=== PATIENT | male | born 1980 | race Caucasian/White ===

== ENCOUNTER 2021-11-29 20:33 | Emergency (ER) | payer OTHER, SELFPAY ==
[2021-11-29 20:34] VITALS: BP 176/98; PULSE 127; RESP 20; TEMP 36.8; O2SAT 97; BMI 23.2
[2021-11-29 21:37] LABS: Absolute Lymphocyte Count 1.94 X10^3/uL (0.83-4.51); Absolute Neutrophil Count 3.8 X10^3/uL (2.0-7.7); Basophil# 0.01 X10^3/uL; Basophil% 0.2 % (0-1); Eosinophil# 0.11 X10^3/uL; Eosinophils% 1.8 % (0-5); Hemoglobin 16.4 g/dL (13.0-16.5); Lymphocyte # 1.94 X10^3/ul (0.83-4.51); Mean Corp Hgb Conc 34.2 g/dL (32-36); Mean Corpuscular Hgb 31.4 pg (27.0-32.0); Mean Platelet Vol. 9.2 fl (6.2-12.0); Monocyte# 0.39 X10^3/uL; Monocyte% 6.2 % (0-10); NRBC Flagged by Analyzer 0 % (0-5); Neutrophil # 3.77 X10^3/uL (2.7-7.7); Neutrophil % 60.3 % (47-70); Platelet Count 240 K/mm3 (150-450); RBC Distribution Width CV 13.5 % (11.6-14.6); Red Blood Count 5.22 M/mm3 (4.6-6.2); White Blood Count 6.3 K/mm3 (4.4-11.0)
[2021-11-29 21:59] LABS: Amphetamine Urine VISTA NEGATIVE (<1000 ng/mL); Barbiturate Urine VISTA NEGATIVE (< 200 ng/mL); Benzodiazepine Urine VISTA NEGATIVE (< 200 ng/mL); Cocaine Urine VISTA NEGATIVE (< 300 ng/mL); Ecstacy Urine VISTA NEGATIVE (< 500 ng/mL); Methadone Urine VISTA NEGATIVE (< 300 ng/mL); PCP Urine VISTA NEGATIVE (< 25 ng/mL); THC Urine VISTA NEGATIVE (< 50 ng/mL); Vista UDS pH Range 5
[2021-11-29 22:00] VITALS: RESP 16
[2021-11-29 22:01] LABS: Anion Gap 13 (5-15); BUN 11 mg/dL (7-18); BUN/Creat Ratio 12.4 RATIO (10-20); Calcium,Total 9.4 mg/dL (8.5-10.1); Chloride 109 mmol/L (98-107); Creatinine, Serum 0.89 mg/dL (0.70-1.30); EST Glomerular Filtration Rate 100 mL/min (>60); Est Glom Filt Rate - Afr Amer 121 mL/min (>60); Estimated Creatinine Clearance 102.12 ml/min; Glucose 137 mg/dL (74-106); Potassium 2.7 mmol/L (3.5-5.1); Sodium Level 144 mmol/L (136-145)
--- NOTE | 2021-11-29 22:09 | EX.ED.VIS.PS ---
HPI HPI - Psych History of Present Illness Chief Complaint: Suicidal Informant: patient Onset/Context/Timing Onset: Today Conflict: Family Worsened by: Situational factors and Alcohol intoxication Relieved by: Nothing Associated Symptoms Associated Symptoms - Psych: Positive for Agitated and Angry Narrative Narrative: Patient presents with reported suicidal ideations. Patient states he went to work today and when he came home he had some drinks of alcohol tonight. Patient states he went to bed. Patient states he was then awoken by the police and was handcuffed. Patient states he became agitated. Patient states he does not know why he is here. Patient denies any suicidal ideations. Patient denies any other symptoms. Police filled out a pink slip. Please report on a pink slip that the patient sent a text message to his saying goodmelissae. 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 The tried to text him back and asked him if he was going to harm himself. Patient did not respond to this text message. PFSH PFSH Medical History no medical history no medical history Allergy/AdvReac Type Severity Reaction Status Date / Time No Known Allergies Allergy Verified 11/29/21 20:34 Surgical History no surgical history no surgical history Social History Smoking Status: Current every day smoker tobacco type: cigarettes ROS ROS ED Constitutional Constitutional ED: Denies chills or fever(s) Eyes Eyes: Denies blurry vision or change in vision ENT ENT ED: Denies rhinorrhea or sore throat Cardiovascular Cardiovascular: Denies chest pain or palpitations Respiratory/Chest Respiratory/Chest: Denies cough or dyspnea Gastrointestinal Gastrointestinal: Denies nausea or vomiting Genitourinary Genitourinary ED: Denies dysuria or hematuria Musculoskeletal Musculoskeletal: Denies back pain or neck pain Integumentary Denies abscess or rash Neurologic Neurologic: Denies headache(s) or weakness Allergic/Immunologic Allergic/Immunologic ED: Denies mouth swelling or urticaria EXAM Physical Exam Const Vital Signs: 11/29/21 20:34 11/29/21 22:00 Temperature 98.2 F Temperature Source Temporal Pulse Rate 127 H Respiratory Rate 20 H 16 Blood Pressure 176/98 H Blood Pressure Mean 124 Pulse Ox 97 Oxygen Delivery Method Room Air Room Air Positive well nourished and well developed General Appearance ED: well developed HEENT normocephalic and atraumatic Neck supple and no JVD Resp normal respiratory effort and clear to auscultation bilaterally Cardio no murmurs Rate: regular rate Rhythm: regular rhythm GI non-tender and non-distended Auscultation: normoactive bowel sounds Palpation: soft Extremity normal to inspection General Extremety ED: Negative for edema or tenderness General Extremity: Negative for edema Neuro oriented x3, CN's II-XII intact bilaterally and no sensory deficits noted Sensorium / Orientation: alert Motor Exam: strength 5/5 throughout Psych mental status grossly normal Activity / Motor Behavior: avoids eye contact Speech: minimal and soft Mood & Affect: flat affect Skin Rashes: no rashes MDM MDM MDM Narrative Medical decision making narrative: CBC was within normal limits. Basic metabolic profile shows a hypokalemia of 2.7. Patient was given a dose of oral potassium here. Urine tox screen was negative. Serum alcohol level was elevated at 253. Patient will be observed until he is clinically sober. Crisis will be in to evaluate the patient when he is clinically sober. Lab Data Attestation: I reviewed the patient's lab results. Labs: Laboratory Results - last 24 hr 11/29/21 11/29/21 11/29/21 21:00 21:10 21:10 WBC 6.3 RBC 5.22 Hgb 16.4 Hct 48.0 MCV 92.0 MCH 31.4 MCHC 34.2 RDW Std Deviation 46.0 H RDW Coeff of Krupa 13.5 Plt Count 240 MPV 9.2 Immature Gran % (Auto) 0.500 Neut % (Auto) 60.3 Lymph % (Auto) 31.0 [place] % (Auto) 6.2 Eos % (Auto) 1.8 Baso % (Auto) 0.2 Absolute Neuts (auto) 3.8 Absolute Lymphs (auto) 1.94 Nucleated RBC % 0 Sodium 144 Potassium 2.7 L* Chloride 109 H Carbon Dioxide 22.0 Anion Gap 13 BUN 11 Creatinine 0.89 Estim Creat Clear Calc 102.12 Est GFR (MDRD) Af Amer 121 Est GFR (MDRD) Non-Af 100 BUN/Creatinine Ratio 12.4 Glucose 137 H Calcium 9.4 Urine Opiates Screen NEGATIVE Urine Methadone Screen NEGATIVE Ur Barbiturates Screen NEGATIVE Ur Phencyclidine Scrn NEGATIVE Ur Amphetamines Screen NEGATIVE MDMA (Ecstasy) Screen NEGATIVE U Benzodiazepines Scrn NEGATIVE Urine Cocaine Screen NEGATIVE U Cannabinoids Screen NEGATIVE Ur Drug Screen Comment Ethyl Alcohol 11/29/21 21:10 WBC RBC Hgb Hct MCV MCH MCHC RDW Std Deviation RDW Coeff of Krupa Plt Count MPV Immature Gran % (Auto) Neut % (Auto) Lymph % (Auto) [place] % (Auto) Eos % (Auto) Baso % (Auto) Absolute Neuts (auto) Absolute Lymphs (auto) Nucleated RBC % Sodium Potassium Chloride Carbon Dioxide Anion Gap BUN Creatinine Estim Creat Clear Calc Est GFR (MDRD) Af Amer Est GFR (MDRD) Non-Af BUN/Creatinine Ratio Glucose Calcium Urine Opiates Screen Urine Methadone Screen Ur Barbiturates Screen Ur Phencyclidine Scrn Ur Amphetamines Screen MDMA (Ecstasy) Screen U Benzodiazepines Scrn Urine Cocaine Screen U Cannabinoids Screen Ur Drug Screen Comment Ethyl Alcohol 253.0 Discharge Plan Triage Chief Complaint: Suicidal ED Provider: Ashish Summers Dx/Rx/DC Orders Clinical Impression: Agitation, Hypokalemia Primary Care Provider: Care Physician,No Primary Referrals: Care Physician,No Primary [Primary Care Provider] -
[2021-11-30 01:00] VITALS: RESP 16
--- NOTE | 2021-11-30 04:53 | NURSING ---
CALLED CRISIS AT [phone]
[2021-11-30 06:00] VITALS: RESP 15
[2021-11-30 07:00] VITALS: PULSE 70; RESP 15; O2SAT 97
== END 2021-11-30 07:22 | disposition home or self-care (01) ==
PROVIDERS: Emergency Medicine; Emergency Provider Emergency Medicine; Visit Provider Emergency Medicine
DX: R45.1 Restlessness and agitation (principal); F10.929 Alcohol use, unspecified with intoxication, unspecified; Y90.8 Blood alcohol level of 240 mg/100 ml or more; E87.6 Hypokalemia; F17.210 Nicotine dependence, cigarettes, uncomplicated
CPT/HCPCS: 36415; 80048; 80307; 82077; 85025; 87811; 99283

== ENCOUNTER 2022-01-31 12:31 | Observation (INO) | payer OTHER, SELFPAY ==
[2022-01-31 12:34] VITALS: BP 159/102; PULSE 107; RESP 16; TEMP 36.6; O2SAT 98; BMI 25.0
--- NOTE | 2022-01-31 12:43 | EKG12_ITS ---
Test Reason : mental health Blood Pressure : / mmHG Vent. Rate : 096 BPM Atrial Rate : 096 BPM P-R Int : 128 ms QRS Dur : 082 ms QT Int : 344 ms P-R-T Axes : 051 014 026 degrees QTc Int : 434 ms Normal sinus rhythm Normal ECG Confirmed by ZULEIMA MONTIEL, DARWIN ([id number]), continuity editor VINOD TILLEY ([id number]) on 02/02/2022 2:14:48 PM Referred By: Kiel Confirmed By:DARWIN DEWEY MD
--- NOTE | 2022-01-31 12:45 | ED.RN ---
Per Dr Dyson no sitter needed. Pt is pink slipped.
--- NOTE | 2022-01-31 12:51 | EDS_ITS ---
HPI <Dr. 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 Patient's been drinking heavily for the past 7 months. Apparently he spoke with his ex- and told him that he wants health. He notes has been drinking [employer] liquor every day and has been drinking heavily the past few days. He cannot quantify how much he has been drinking. He does not have any history of alcohol withdrawal or DTs. Patient is requesting help with alcohol dependency. When EMS/police asked if he was feeling suicidal he said yes. He is having thoughts of wanting to . Of asked he had a plan he said with alcohol and Aleve. He states he has remote history of overdose with alcohol and Aleve. He states he did not take any Aleve or any other medications today. Patient states he does not have any guns or weapons at the home however he does have some paintball/Airsoft guns. He lives home alone. Was here for alcohol intoxication/suicidal ideations about 2 months ago. At that time on reevaluation after he was clinically sober, patient denied any SI and was discharged home with outpatient counseling follow up. Patient does note that he has been having tingling and numbness of his tongue and his calfs for the past 7 months or so since he has been drinking heavily. No other physical complaints at this time. PFSH <Dr. Smita Dyson, DO - Last Filed: 02/01/22 07:09> [facility] Medical History Alcohol abuse Anxiety Depression Smoker Home Medications NK 01/31/22 [History Last Taken Unknown] Allergy/AdvReac Type Severity Reaction Status Date / Time No Known Allergies Allergy Verified 01/31/22 12:40 Family History (Updated 01/31/22 @ 20:[address] Pato Braun MD) Other Alcoholism Surgical History H/O wisdom tooth extraction Social History Smoking Status: Current every day smoker tobacco type: cigarettes ROS <Dr. Smita Dyson, DO - Last Filed: 02/01/22 07:09> ROS ED Constitutional Constitutional ED: Denies chills or fever(s) Eyes Eyes: Denies change in vision ENT ENT ED: Reports other Details: tongue tingling ; Denies sore throat Cardiovascular Cardiovascular: Denies chest pain Respiratory/Chest Respiratory/Chest: Denies cough Gastrointestinal Gastrointestinal: Denies abdominal pain, nausea or vomiting Genitourinary Genitourinary ED: Denies dysuria Musculoskeletal Musculoskeletal: Denies arthralgias or back pain Integumentary Denies rash Neurologic Neurologic: Reports paresthesias; Denies headache(s) or weakness Psychiatric Psychiatric: Reports depression, suicidal ideation and suicidal thoughts; Denies anxiety Hematologic/Lymphatic Hematologic/Lymphatic: Denies easy bleeding or easy bruising EXAM <Dr. Smita Dyson, DO - Last Filed: 02/01/22 07:09> Physical Exam Const Vital Signs: 01/31/22 12:34 01/31/22 17:37 Temperature 98 F 98.4 F Temperature Source Temporal Temporal Pulse Rate 107 H 109 H Respiratory Rate 16 16 Blood Pressure 159/102 H 158/92 H Blood Pressure Mean 121 114 Pulse Ox 98 96 Oxygen Delivery Method Room Air Room Air Positive well nourished and well developed General Appearance ED: well developed and NAD HEENT Reports moist mucous membranes normocephalic and atraumatic Eyes PERRL and EOMs intact bilaterally Neck supple and no JVD Resp normal respiratory effort and clear to auscultation bilaterally Cardio no murmurs Rate: tachycardic Rhythm: regular rhythm GI non-tender, non-distended and no masses Palpation: Negative for guarding Extremity normal to inspection General Extremety ED: Negative for edema or tenderness General Extremity: Negative for edema Neuro no sensory deficits noted Neuro Narrative: Slightly slurred speech consistent with alcohol intoxication. Sensorium / Orientation: alert Motor Exam: muscle tone normal throughout Psych cooperative Appearance: grossly normal and appropriate Attitude: withdrawn Activity / Motor Behavior: avoids eye contact Speech: slurred Mood & Affect: depressed and tearful Thought Process: normal thought process Thought Content: suicidality, No homicidality, No delusion(s) and No hallucination(s) Attention / Concentration: attention grossly intact Memory / Cognition: memory grossly intact Insight: fair Judgement: limited Skin Lesions: no lesions Rashes: no rashes <Dr. Franklin Escobar, DO - Last Filed: 01/31/22 20:34> Physical Exam Const Vital Signs: 01/31/22 12:34 01/31/22 17:37 Temperature 98 F 98.4 F Temperature Source Temporal Temporal Pulse Rate 107 H 109 H Respiratory Rate 16 16 Blood Pressure 159/102 H 158/92 H Blood Pressure Mean 121 114 Pulse Ox 98 96 Oxygen Delivery Method Room Air Room Air MDM <Dr. Smita Dyson, DO - Last Filed: 02/01/22 07:09> MDM MDM Narrative Medical decision making narrative: Patient is evaluated for alcohol intoxication as well as depression. EMS/police were initially called out for alcohol intoxication however patient screened positive for SI. Patient seems to have more passive suicidal ideations as his plan is to drink alcohol. He is cooperative the emergency room. I do think that he would benefit from further psychiatric evaluation and possible evaluation for alcohol detox. We will obtain medical clearance. [place] slip filed by myself. At this time I do not think he needs a sitter as I do not think he is going to harm himself in the room. If he does try to leave or start to become uncooperative we will need to get a sitter at that time. Patient is medically cleared. He will need a lower EtOH level before case management/crisis can see him. Will be signed out to oncoming provider pending final disposition. Lab Data Attestation: I reviewed the patient's lab results. Labs: Laboratory Results - last 24 hr 01/31/22 01/31/22 01/31/22 13:00 13:00 13:00 WBC 5.7 RBC 5.04 Hgb 16.6 H Hct 45.4 MCV 90.1 MCH 32.9 H MCHC 36.6 H RDW Std Deviation 44.6 H RDW Coeff of Krupa 13.4 Plt Count 270 MPV 9.3 Immature Gran % (Auto) 0.200 Neut % (Auto) 61.8 Lymph % (Auto) 28.8 [place] % (Auto) 7.3 Eos % (Auto) 1.6 Baso % (Auto) 0.3 Absolute Neuts (auto) 3.5 Absolute Lymphs (auto) 1.65 Nucleated RBC % 0 Sodium 141 Potassium 3.5 Chloride 106 Carbon Dioxide 23.0 Anion Gap 12 BUN 7 Creatinine 0.77 Estim Creat Clear Calc 109.82 Est GFR (MDRD) Af Amer 143 Est GFR (MDRD) Non-Af 119 BUN/Creatinine Ratio 9.1 L Glucose 96 Calcium 8.9 Total Bilirubin 0.90 AST 37 ALT 39 Alkaline Phosphatase 46 Total Protein 7.7 Albumin 3.9 Globulin 3.8 Albumin/Globulin Ratio 1.0 Salicylates Urine Opiates Screen Urine Methadone Screen Acetaminophen Ur Barbiturates Screen Ur Phencyclidine Scrn Ur Amphetamines Screen MDMA (Ecstasy) Screen U Benzodiazepines Scrn Urine Cocaine Screen U Cannabinoids Screen Ur Drug Screen Comment Ethyl Alcohol 180.0 01/31/22 01/31/22 01/31/22 13:00 14:35 17:17 WBC RBC Hgb Hct MCV MCH MCHC RDW Std Deviation RDW Coeff of Krupa Plt Count MPV Immature Gran % (Auto) Neut % (Auto) Lymph % (Auto) [place] % (Auto) Eos % (Auto) Baso % (Auto) Absolute Neuts (auto) Absolute Lymphs (auto) Nucleated RBC % Sodium Potassium Chloride Carbon Dioxide Anion Gap BUN Creatinine Estim Creat Clear Calc Est GFR (MDRD) Af Amer Est GFR (MDRD) Non-Af BUN/Creatinine Ratio Glucose Calcium Total Bilirubin AST ALT Alkaline Phosphatase Total Protein Albumin Globulin Albumin/Globulin Ratio Salicylates 2.4 L Urine Opiates Screen NEGATIVE Urine Methadone Screen NEGATIVE Acetaminophen < 2.0 L Ur Barbiturates Screen NEGATIVE Ur Phencyclidine Scrn NEGATIVE Ur Amphetamines Screen NEGATIVE MDMA (Ecstasy) Screen NEGATIVE U Benzodiazepines Scrn NEGATIVE Urine Cocaine Screen NEGATIVE U Cannabinoids Screen NEGATIVE Ur Drug Screen Comment Ethyl Alcohol 43.0 Rhythm Strip Rhythm Strip: Sinus Rhythm Rate: 96 Ectopy: None EKG Initial EKG: Attestation: I personally reviewed and interpreted this EKG as follows: Interpretation: Sinus Rhythm Comments: Normal sinus rhythm at a rate of 96 Normal axis Normal intervals Normal ST segments <Dr. Franklin Escobar, DO - Last Filed: 01/31/22 20:34> [facility] MDM Narrative Medical decision making narrative: Patient is evaluated for alcohol intoxication as well as depression. EMS/police were initially called out for alcohol intoxication however patient screened positive for SI. Patient seems to have more passive suicidal ideations as his plan is to drink alcohol. He is cooperative the emergency room. I do think that he would benefit from further psychiatric evaluation and possible evaluation for alcohol detox. We will obtain medical clearance. [place] slip filed by myself. At this time I do not think he needs a sitter as I do not think he is going to harm himself in the room. If he does try to leave or start to become uncooperative we will need to get a sitter at that time. Patient is medically cleared. He will need a lower EtOH level before case management/crisis can see him. Will be signed out to oncoming provider pending final disposition. Dr. Escobar dictating: Patient signed out to me awaiting EtOH level to normalize for reevaluation. Patient's EtOH now 43. He is awake and alert. I had social work speak with him and he is no longer suicidal. He states he just feels that way when he is drinking and states that when he is drinking he does not want to live like this indicating drinking too much. He is stating that he will do outpatient detox however after talking to social work and his he decided to stay here at [facility] for detox. Patient discussed with hospitalist for admission. Impression: 1. Suicidal statements 2. EtOH intoxication 3. Request for EtOH detox Lab Data Labs: Laboratory Results - last 24 hr 01/31/22 01/31/22 01/31/22 13:00 13:00 13:00 WBC 5.7 RBC 5.04 Hgb 16.6 H Hct 45.4 MCV 90.1 MCH 32.9 H MCHC 36.6 H RDW Std Deviation 44.6 H RDW Coeff of Krupa 13.4 Plt Count 270 MPV 9.3 Immature Gran % (Auto) 0.200 Neut % (Auto) 61.8 Lymph % (Auto) 28.8 [place] % (Auto) 7.3 Eos % (Auto) 1.6 Baso % (Auto) 0.3 Absolute Neuts (auto) 3.5 Absolute Lymphs (auto) 1.65 Nucleated RBC % 0 Sodium 141 Potassium 3.5 Chloride 106 Carbon Dioxide 23.0 Anion Gap 12 BUN 7 Creatinine 0.77 Estim Creat Clear Calc 109.82 Est GFR (MDRD) Af Amer 143 Est GFR (MDRD) Non-Af 119 BUN/Creatinine Ratio 9.1 L Glucose 96 Calcium 8.9 Total Bilirubin 0.90 AST 37 ALT 39 Alkaline Phosphatase 46 Total Protein 7.7 Albumin 3.9 Globulin 3.8 Albumin/Globulin Ratio 1.0 Salicylates Urine Opiates Screen Urine Methadone Screen Acetaminophen Ur Barbiturates Screen Ur Phencyclidine Scrn Ur Amphetamines Screen MDMA (Ecstasy) Screen U Benzodiazepines Scrn Urine Cocaine Screen U Cannabinoids Screen Ur Drug Screen Comment Ethyl Alcohol 180.0 01/31/22 01/31/22 01/31/22 13:00 14:35 17:17 WBC RBC Hgb Hct MCV MCH MCHC RDW Std Deviation RDW Coeff of Krupa Plt Count MPV Immature Gran % (Auto) Neut % (Auto) Lymph % (Auto) [place] % (Auto) Eos % (Auto) Baso % (Auto) Absolute Neuts (auto) Absolute Lymphs (auto) Nucleated RBC % Sodium Potassium Chloride Carbon Dioxide Anion Gap BUN Creatinine Estim Creat Clear Calc Est GFR (MDRD) Af Amer Est GFR (MDRD) Non-Af BUN/Creatinine Ratio Glucose Calcium Total Bilirubin AST ALT Alkaline Phosphatase Total Protein Albumin Globulin Albumin/Globulin Ratio Salicylates 2.4 L Urine Opiates Screen NEGATIVE Urine Methadone Screen NEGATIVE Acetaminophen < 2.0 L Ur Barbiturates Screen NEGATIVE Ur Phencyclidine Scrn NEGATIVE Ur Amphetamines Screen NEGATIVE MDMA (Ecstasy) Screen NEGATIVE U Benzodiazepines Scrn NEGATIVE Urine Cocaine Screen NEGATIVE U Cannabinoids Screen NEGATIVE Ur Drug Screen Comment Ethyl Alcohol 43.0 Discharge Plan Dx/Rx/DC Orders Clinical Impression: Alcohol intoxication, Depression, Suicidal ideation Disposition Disposition: Acute Care Hospital [facility]
[2022-01-31 13:15] LABS: Absolute Lymphocyte Count 1.65 X10^3/uL (0.83-4.51); Absolute Neutrophil Count 3.5 X10^3/uL (2.0-7.7); Basophil# 0.02 X10^3/uL; Basophil% 0.3 % (0-1); Eosinophil# 0.09 X10^3/uL; Eosinophils% 1.6 % (0-5); Hematocrit 45.4 % (40-54); Hemoglobin 16.6 g/dL (13.0-16.5); Lymphocyte # 1.65 X10^3/ul (0.83-4.51); Lymphocyte % 28.8 % (19-41); Mean Corp Hgb Conc 36.6 g/dL (32-36); Mean Corpuscular Hgb 32.9 pg (27.0-32.0); Mean Corpuscular Volume 90.1 fL (80-94); Mean Platelet Vol. 9.3 fl (6.2-12.0); Monocyte# 0.42 X10^3/uL; Monocyte% 7.3 % (0-10); NRBC Flagged by Analyzer 0 % (0-5); Neutrophil # 3.54 X10^3/uL (2.7-7.7); Neutrophil % 61.8 % (47-70); Platelet Count 270 K/mm3 (150-450); RBC Distribution Width CV 13.4 % (11.6-14.6); RBC Distribution Width SD 44.6 fl (35.1-43.9); Red Blood Count 5.04 M/mm3 (4.6-6.2); White Blood Count 5.7 K/mm3 (4.4-11.0)
--- NOTE | 2022-01-31 13:23 | CM.ED ---
Social Work Note SW spoke with medtronics technician, pt is intoxicated. Pt will need to be sober before psych evaluation can be completed. SW informed medtronics technician to let this worker know if pt becomes medically sober/cleared. Yesenia Syed SHOES HAND SEWER, SCHEDULING MANAGER
[2022-01-31 13:33] LABS: AST(SGOT) 37 U/L (15-37); Alanine Aminotransfer ALT/SGPT 39 U/L (16-61); Albumin, Serum 3.9 g/dL (3.2-5.0); Alkaline Phosphatase 46 U/L (45-117); Anion Gap 12 (5-15); BUN 7 mg/dL (7-18); BUN/Creat Ratio 9.1 RATIO (10-20); Calcium,Total 8.9 mg/dL (8.5-10.1); Chloride 106 mmol/L (98-107); Creatinine, Serum 0.77 mg/dL (0.70-1.30); EST Glomerular Filtration Rate 119 mL/min (>60); Est Glom Filt Rate - Afr Amer 143 mL/min (>60); Estimated Creatinine Clearance 109.82 ml/min; Globulin 3.8 g/dL (2.2-4.2); Glucose 96 mg/dL (74-106); Potassium 3.5 mmol/L (3.5-5.1); Protein, Total 7.7 g/dL (6.4-8.2); Sodium Level 141 mmol/L (136-145)
[2022-01-31 14:03] LABS: Acetaminophen (Tylenol) Level < 2.0 ug/mL (10.0-30.0); Salicylate 2.4 mg/dL (2.8-20.0)
[2022-01-31 15:02] LABS: Amphetamine Urine VISTA NEGATIVE (<1000 ng/mL); Barbiturate Urine VISTA NEGATIVE (< 200 ng/mL); Benzodiazepine Urine VISTA NEGATIVE (< 200 ng/mL); Cocaine Urine VISTA NEGATIVE (< 300 ng/mL); Ecstacy Urine VISTA NEGATIVE (< 500 ng/mL); Methadone Urine VISTA NEGATIVE (< 300 ng/mL); PCP Urine VISTA NEGATIVE (< 25 ng/mL); THC Urine VISTA NEGATIVE (< 50 ng/mL); Vista UDS pH Range 5
[2022-01-31] MEDS: Folic Acid 1 MG Tablet 2 MG PO (17:34)
[2022-01-31] MEDS: Cyanocobalamin 500 MCG Tablet 1000 MCG PO (17:36)
[2022-01-31 17:37] VITALS: BP 158/92; PULSE 109; RESP 16; TEMP 36.9; O2SAT 96
--- NOTE | 2022-01-31 20:12 | HP.PCM.HOS_ITS ---
HPI - General General Date of Admission: 01/31/22 Date of Service: 01/31/22 Chief Complaint: Desire for detoxification HPI Narrative AZEB REAL, is a 41 M with a significant history of alcoholism and tobacco abuse who is requesting detoxification from alcohol. Of note patient originally presented to emergency department intoxicated. At that time he said he was suicidal and depressed so he was pink slipped. When patient became sober he denied suicidal ideation and was cleared by social work. Upon discussion between drug abuse social worker; patient and patient's ex- patient requested detoxification from alcohol. Reportedly he has been drinking heavily for the past 5 years. He drinks [employer]. On the average he drinks about 8 shots per day. Last time he drank was on the same day of presentation. He reports withdrawal symptoms of hot sweats. [facility] Medical History Alcohol abuse Anxiety Depression Smoker Medical History no medical history no medical history Home Medications NK 01/31/22 [History Last Taken Unknown] Allergy/AdvReac Type Severity Reaction Status Date / Time No Known Allergies Allergy Verified 01/31/22 12:40 Family History (Updated 01/31/22 @ 20:[address] Pato Braun MD) Other Alcoholism Surgical History H/O wisdom tooth extraction Social History Smoking Status: Current every day smoker tobacco type: cigarettes ROS ROS Narrative Pertinent positives and pertinent negatives as noted in HPI. All other systems were reviewed and are negative. Vital Signs Vital Signs Vital Signs: 01/31/22 12:34 01/31/22 17:37 Temperature 98 F 98.4 F Temperature Source Temporal Temporal Pulse Rate 107 H 109 H Respiratory Rate 16 16 Blood Pressure 159/102 H 158/92 H Blood Pressure Mean 121 114 Pulse Ox 98 96 Oxygen Delivery Method Room Air Room Air Weight Weight: 68.039 kg Body Mass Index (BMI) 25.0 Physical Exam Narrative Physical exam: General: Well-nourished, well-developed. Head: Normocephalic, atraumatic, no tenderness Eyes: Vision is grossly intact. EOMI ENT, no trauma, moist mucous membranes, no rhinorrhea Neck: Nontender, full range of motion, no spinal tenderness, deformities, step- off CVS: Regular rate and rhythm. S1-S2 present. No murmur, gallop or rub. Respiratory : clear to auscultation bilaterally, chest wall nontender, no wheezing Abdomen: Soft, nontender, nondistended, normal bowel sounds, no masses : Deferred Back: Nontender, no CVA tenderness, no midline spinal tenderness, deformities, step-offs Extremities: Nontender full range of motion, no trauma Skin: Normal color, no trauma, abrasions Neuro: Alert, oriented, cranial nerves II through XII grossly intact. Psychiatry: Normal mood. Normal affect. Not depressed. Not anxious. Results Lab / Micro Data Result Diagrams: 01/31/22 13:00 01/31/22 13:00 Labs: Laboratory Results - last 24 hr 01/31/22 13:00: WBC 5.7, RBC 5.04, Hgb 16.6 H, Hct 45.4, MCV 90.1, MCH 32.9 H, MCHC 36.6 H, RDW Std Deviation 44.6 H, RDW Coeff of Krupa 13.4, Plt Count 270, MPV 9.3, Immature Gran % (Auto) 0.200, Neut % (Auto) 61.8, Lymph % (Auto) 28.8, [place] % (Auto) 7.3, Eos % (Auto) 1.6, Baso % (Auto) 0.3, Absolute Neuts (auto) 3.5, Absolute Lymphs (auto) 1.65, Nucleated RBC % 0 01/31/22 13:00: Sodium 141, Potassium 3.5, Chloride 106, Carbon Dioxide 23.0, Anion Gap 12, BUN 7, Creatinine 0.77, Estim Creat Clear Calc 109.82, Est GFR (MDRD) Af Amer 143, Est GFR (MDRD) Non-Af 119, BUN/Creatinine Ratio 9.1 L, Glucose 96, Calcium 8.9, Total Bilirubin 0.90, AST 37, ALT 39, Alkaline Phosphatase 46, Total Protein 7.7, Albumin 3.9, Globulin 3.8, Albumin/Globulin Ratio 1.0 01/31/22 13:00: Ethyl Alcohol 180.0 01/31/22 13:00: Salicylates 2.4 L, Acetaminophen < 2.0 L 01/31/22 14:35: Urine Opiates Screen NEGATIVE, Urine Methadone Screen NEGATIVE, Ur Barbiturates Screen NEGATIVE, Ur Phencyclidine Scrn NEGATIVE, Ur Amphetamines Screen NEGATIVE, MDMA (Ecstasy) Screen NEGATIVE, U Benzodiazepines Scrn NEGATIVE, Urine Cocaine Screen NEGATIVE, U Cannabinoids Screen NEGATIVE, Ur Drug Screen Comment 01/31/22 17:17: Ethyl Alcohol 43.0 Rhythm Strip Rhythm Strip: Sinus Rhythm Rate: 96 Ectopy: None Assessment & Plan Assessment/Plan (1) Desire for detoxification: PLAN: Plan Alcohol dependence and desire for detoxification Toxicology was unremarkable except ethanol level of 180 which with time decreased to 43. Patient be started on phenobarbital and other adjunctive medications: Gabapentin as needed; dicyclomine as needed; Vistaril as needed; Imodium as needed; trazodone as needed; Zofran as needed; scheduled thiamine; and schedule folic acid. Monitor CIWA score Tobacco abuse Counseled Declined nicotine patch . DVT prophylaxis Low risk Encourage to ambulate Charges/Coding Visit Charges Inpatient E&M: 58580 Init Hosp L2
[2022-01-31 20:16] VITALS: RESP 17
[2022-01-31 21:17] VITALS: BP 150/84; PULSE 100; RESP 16; TEMP 36.9; O2SAT 97
--- NOTE | 2022-01-31 21:41 | CM.ED ---
Social Work Assessment Social Work Psychiatric Assessment Reason for consult: Mental Health/Suicidal Ideations Informant(s): Pt, Pt?s ex- Courtney. Chief Complaint: Pt states that the reason he came to [facility] was ?alcohol.? Pt states that he texted his ex- asking for help with his drinking and she call the squad. Pt states that he drinks [place]. SW asked him how much does he drink and pt stated ?it just depends on the day.? Pt states that today was the last time he drank. Pt states that he has been in contact wit Deepa in [place] to get into residential treatment. Pt states that the main reason he is at [facility] is for his Alcohol use and getting help with his Alcohol. SW informed pt that it was reported that he ?made several statements that he wanted to kill himself today.? Pt states ?I never said I wanted to kill myself,? pt states ?I said I didn?t want to live like this anymore.? SW asked pt to elaborate. Pt states the Alcohol use. Marital/Social History: Marital Status: . Pt states that the Divorce paperwork is still being filed. Pt states that he has two girls. Pt states that they primarily stay with their mother (pt?s ex-). Pt states that he was seeing them but now is no longer seeing them. Pt state that when he and his were together, he would drink around his kids. Pt states that his would always be available to take care of the kids and make sure they were provided for when he drank. Living Situation: Pt states that he lives alone. Support/Resources: Pt states that his ex- Courtney is good support. Pt states that they do not talk much when he is not drinking but states that he did text her asking for help. History: None Education and Employment History: Pt states that he graduated from high school and had no learning difficulties. Pt states that he did attend college for about a year but states it was too expensive. Pt states that he does currently work at [employer] [place]. Pt states that his alcohol use has affected his work. Pt states that he missed yesterday and today because he was intoxicated. Mental Health Treatment/History: Pt states that he has history of Anxiety and Depression. Pt states that he is not on any medications. Pt states that he has seen a counselor/therapist for both couples counseling and individual counseling off and on but states he is not currently seeing one. Pt states he has not been placed in psych hospitals before. Pt states that he does have suicidal thoughts when he drinks, especially when he does ?heavy drinking.? Pt states to him, heavy drinking is 8 shots. Pt stats that today he finished what was left of the bottle which was a quarter today. Pt state that he has had thoughts of suicide in the past, but no thoughts today. Pt states that he has no history of attempts but then states ?maybe one.? Pt state in 2003 he took Alcohol and Aleve together as an attempt. Pt states that it did nothing to him and he woke up the next day. Pt states he did not have to go to the hospital. Pt states he did not take any Aleve today while he was drinking. Triggers/Stressors: Pt currently going through a Divorce with his . Pt states that they were together a total of 14 years and for 8 years. Pt states that the paperwork is being filed. Coping Skills: Pt states ?nothing really.? SW spoke with pt about how if he goes to [facility] for residential, they will help pt to come up with positive coping skills. Abuse Issues: Pt states none. Substance Abuse Hx: Pt with current everyday ETOH use. Pt states the amount ?just depends.? Pt states that he drinks [place]. Of note, pt?s tox screen when arrived at [facility] was 180 and now pt?s tox level is 43.0. Pt still with ETOH in his system during assessment. Pt states that he also smokes cigarettes every day. Risk to Self/Others: ? Suicidal: Pt currently denying any suicidal thoughts/plans/ideations. Pt states that he never said he wanted to kill himself. Pt states that he said he didn?t want to live like this anymore pt states relating to his Alcohol use. Pt states he had thoughts of not wanting to be here anymore. Again, pt denied any current suicidal thoughts/plans/ideations. Pt states that when he has had suicidal thoughts, he has not come up with a plan. Pt states that the thoughts have been increased lately though as he has increased his drinking. Pt relates the increased in thoughts to his increase in drinking. SW asked pt if he wanted to , pt stated ?don?t know.? SW asked pt to elaborate on this. Pt again states that he is just not sure he wants to be here. Pt states he thinks he is ?too chicken shit to do it myself.? SW asked pt on a scale of 1-10, with one being the lowest and 10 being the highest, what he would rate his intent is currently to kill himself and pt states a 1. Pt states that has no guns in the home and no weapons. Pt is able to state that his two girls are worth living for and states that his girls would miss him if something happened to him. SW asked pt if he were to be discharged home tonight if he would be safe and pt states yes he would be safe. SW asked pt what is motivating him to get help with his ETOH use now and pt states ?I am starting to miss more work, my house chores are falling behind, and I don?t want to live like this anymore. Pt again denied any current suicidal thoughts/plans/ideations. Pt is able to identify that there is a difference between being ok with dying and wanting to harm self to . Pt state that he does not have any current suicidal thoughts/plans/ideations. Pt states that he did not take Aleve today with his Alcohol. Pt states that he is not on any medications. ? Homicidal: Pt states none ? Violence: Pt states that he will throw objects to break them. Mental Status Exam: Orientation: Pt is alert and oriented x4. Memory: Fair Appearance/General Behavior: Clean/appropriate, pt?s eyes appeared glossy. Mood/Affect: Depressed Communication Pattern: Responds to questions, does not initiate Thought Process: Appropriate General Intellectual Functioning: Average Judgment: Poor Insight: Poor SW spoke with pt about discharge plans and informed pt that this worker will update the physician. SW spoke with pt about the [facility] program and how they will stabilize his withdrawal symptoms and help to facilitate pt going to [facility]. Pt states that he will just go home and follow up with [facility]. SW informed pt that this worker has concerns with him going home as he is going to start withdrawal and he is going to start feeling worse. SW informed pt that this worker has concerns that he will start drinking again and may not [facility]. Pt state that he wants to go home, mainly because he wants a cigarette and states that he will not drink. Pt states that he has quit before on his own and went two weeks without drinking. Pt states that he has no alcohol in the home. SW asked pt if he has easy access to get alcohol and pt states there is a gas station around where he lives. SW asked pt if this worker could call his ex-. Pt gave permission and gave name and number. Pt states his ex- is named Courtney and her number is [phone]. AURELIA placed a call to Courtney. Courtney states that she is a clinical Psychologist. Courtney states that she has talked to pt today, yesterday and Sunday. Courtney states that pt has Alcoholism and Mental Health issues. Courtney states that pt in the past had made comments about harming self. Courtney states that in November she had called to do a welfare check on pt and pt was super intoxicated. Courtney states that today pt texted her saying he wanted to get help and that he was not feeling well due to drinking so much. Courtney sates that pt actually wanted to get help today. Courtney states she had reached out to [facility] and spoke with Liliana and was told that pt would need to be medically stabilized before going to their facility. Courtney states that she is supporting him right now and she agrees that pt needs to be admitted for stabilization and then transition to [facility]. Courtney state that pt did not say that he wanted to kill himself. Courtney states that pt does state he doesn?t want to live like this anymore but she states that is because pt is in a cycle of crying, being depressed, crying and drinking. Courtney states she has no concerns with pt harming himself. Courtney states that she is unaware of any attempts recently. AURELIA informed Courtney that this worker will update physician and physician has final say for pt?s discharge. AURELIA informed Courtney that if physician feels pt can discharge home and pt does not want to stay for [facility] program then pt will discharge home. Courtney states ?well would it change if I said I do have concerns about him killing himself, would he have to stay then.? AURELIA informed Courtney that if she has those concerns she needs to tell SW but if not she cannot lie about it. Courtney states that she will call pt and talk to him about the [facility] program. AURELIA in to speak with MD Escobar. MD Escobar feels pt does not meet inpatient psychiatric hospitalization at this time, but that pt needs detox. AURELIA informed MD Escobar that this worker can look into dual diagnosis facilities for Psych. MD Escobar states that [facility] cannot force pt into detox and if pt isn?t agreeable to detox then SW can complete Safety Plan with pt. SW back in to speak with pt and pt?s ex- Courtney on the phone. SW continued discussion of [facility] program with both pt and Courtney. After much discussion, pt states that he is agreeable to [facility] program. SW did explain the [facility] rules, pt still agreeable to [facility] program. SW reiterated to pt that an addiction therapist will meet with him and will help him to get into [facility]. SW informed pt that if he would?ve chose to go home, then he would?ve had to work on getting himself to [facility] by himself, SW informed pt that this way, the addiction therapist will be able to assist with that transition. SW spoke with pt about how he stated he wanted help and [facility] is able to help pt with his Alcohol use. AURELIA spoke with pt about how detoxing from Alcohol can be dangerous. Pt states ?well I don?t want to .? Pt agreeable to [facility]. AURELIA updated MD Escobar that pt is now agreeable to [facility]. AURELIA discussed case with Darrion ROUSE. Pt does have some risk factors including his age, male, going through Divorce, extra stress in his life, but pt states that he has no current suicidal thoughts/plans/ideations. Pt does have one history of attempt in 2003 as pt took Aleve with his alcohol. At this time, pt is agreeable to admission to [facility] program where pt can get through his withdrawal and continued to be assessed once he has completed his withdrawal and he is sober. IF PT LEAVES AMA, STAFF IS TO CALL CRISIS TO COMPLETE A FOLLOW UP/WELFARE CHECK ON PT. AURELIA placed a call to Ethel addiction therapist and updated her on referral and on pt. AURELIA updated Ethel that if pt leaves AMA, crisis will need to be called so they can complete a follow up/welfare check on pt. At this time, pt is agreeable to [facility] admission and pt is currently denied any suicidal thoughts/plans/ideations. Pt is able to make the realization that when he drinks heavily is when he has suicidal thoughts. Pt states when he increases his drinking, his thoughts increase. Pt is also able to identify that there is a difference between being ok with dying and taking steps to harm self. Pt states he had no suicidal thoughts today and states when he has suicidal thoughts, he does not come up with a plan. Pt did state that he does not want to . Pt stated that currently his intent on harming himself was a 1, which is the lowest. Pt to be admitted to [facility] program. SW placed a call to Tania DURBIN and left message with handoff on pt. Plan: Admit to [facility] Program. IF PT LEAVES AMA FROM [facility] PROGRAM, STAFF IS TO CALL CRISIS TO HAVE THEM COMPLETE A FOLLOW UP/WELFARE CHECK ON PT. Yesenia Syed INSTRUMENT LENS GENERATOR, FOREST ECOLOGIST
[2022-01-31 22:37] VITALS: BP 165/104; PULSE 89; RESP 18; TEMP 37.1; O2SAT 98
[2022-01-31 22:40] VITALS: BMI 24.2
[2022-01-31] MEDS: Phenobarbital 32.4 MG Tablet 64.8 MG PO (23:04)
[2022-02-01] MEDS: Phenobarbital 32.4 MG Tablet 64.8 MG PO ×6 (03:05→22:30)
[2022-02-01 03:10] VITALS: BP 139/88; PULSE 73; RESP 18; TEMP 36.8; O2SAT 98
[2022-02-01 06:37] VITALS: BP 134/78; PULSE 67; RESP 18; TEMP 37; O2SAT 97
[2022-02-01 07:35] VITALS: O2SAT 96
[2022-02-01] MEDS: Thiamine Hydrochloride 100 MG Tablet PO (08:29)
[2022-02-01] MEDS: Folic Acid 1 MG Tablet PO (08:29)
[2022-02-01 10:57] VITALS: BP 142/74; PULSE 78; RESP 18; TEMP 36.7; O2SAT 100
--- NOTE | 2022-02-01 13:08 | PN.HOSP_ITS ---
Subjective Subjective Patient seen and examined. He has no active complaints and feels well. REview of systems is otherwise negative. He has remained stable. Objective Data Objective Data Vital Signs: Vital Signs Temp Pulse Resp BP Pulse Ox O2 Del Method 98.0 F 78 18 142/74 H 100 Room Air 02/01/22 10:57 02/01/22 10:57 02/01/22 10:57 02/01/22 10:57 02/01/22 10:57 02/01/22 10:57 Oxygen Delivery Method Room Air Weight: 145 lb 8.081 oz Body Mass Index (BMI) 24.2 Intake & Output: Intake and Output for Last 24 Hours 01/30/22 01/31/22 02/01/22 23:59 23:59 23:59 Intake Total 800 / 800 Balance 800 / 800 Lab / Micro Data Result Diagrams: 01/31/22 13:00 01/31/22 13:00 Labs: Laboratory Results - last 24 hr 01/31/22 13:00: WBC 5.7, RBC 5.04, Hgb 16.6 H, Hct 45.4, MCV 90.1, MCH 32.9 H, MCHC 36.6 H, RDW Std Deviation 44.6 H, RDW Coeff of [place] 13.4, Plt Count 270, MPV 9.3, Immature Gran % (Auto) 0.200, Neut % (Auto) 61.8, Lymph % (Auto) 28.8, [place] % (Auto) 7.3, Eos % (Auto) 1.6, Baso % (Auto) 0.3, Absolute Neuts (auto) 3.5, Absolute Lymphs (auto) 1.65, Nucleated RBC % 0 01/31/22 13:00: Sodium 141, Potassium 3.5, Chloride 106, Carbon Dioxide 23.0, Anion Gap 12, BUN 7, Creatinine 0.77, Estim Creat Clear Calc 109.82, Est GFR (MDRD) Af Amer 143, Est GFR (MDRD) Non-Af 119, BUN/Creatinine Ratio 9.1 L, Glucose 96, Calcium 8.9, Total Bilirubin 0.90, AST 37, ALT 39, Alkaline Phosphatase 46, Total Protein 7.7, Albumin 3.9, Globulin 3.8, Albumin/Globulin Ratio 1.0 01/31/22 13:00: Ethyl Alcohol 180.0 01/31/22 13:00: Salicylates 2.4 L, Acetaminophen < 2.0 L 01/31/22 14:35: Urine Opiates Screen NEGATIVE, Urine Methadone Screen NEGATIVE, Ur Barbiturates Screen NEGATIVE, Ur Phencyclidine Scrn NEGATIVE, Ur Amphetamines Screen NEGATIVE, MDMA (Ecstasy) Screen NEGATIVE, U Benzodiazepines Scrn NEGATIVE, Urine Cocaine Screen NEGATIVE, U Cannabinoids Screen NEGATIVE, Ur Drug Screen Comment 01/31/22 17:17: Ethyl Alcohol 43.0 Rhythm Strip Rhythm Strip: Sinus Rhythm Rate: 96 Ectopy: None Physical Exam Const alert and oriented x3 HEENT head/scalp atraumatic and moist oral mucous membranes Head and Scalp: normocephalic Mouth: oral and palatal mucosa normal Eyes PERRL, EOMs intact bilaterally and conjunctivae normal Neck no lymphadenopathy, supple and no JVD Resp normal respiratory effort, no retractions, no use of accessory muscles and clear to auscultation bilaterally Cardio regular rate, regular rhythm, S1 normal heart sound, S2 normal heart sound and no murmurs GI normal to inspection, nondistended, normoactive bowel sounds, soft to palpation, non-tender, non-distended and hepatosplenomegaly Extremity normal to inspection, full ROM and no clubbing, cyanosis or edema General Extremity: edema Neuro oriented x3, CN's II-XII intact bilaterally, moves all extremities, no focal motor deficits and no sensory deficits noted Sensorium / Orientation: awake and alert Motor Exam: strength 5/5 throughout Psych affect normal Assessment & Plan Assessment/Plan (1) Alcohol intoxication: (2) Desire for detoxification: PLAN: Plan #Acute alcohol withdrawal * on alcohol withdrawal protocol with phenobarbital * monitor CIWA score * adjunctive meds for symptomatic relief * PO thiamine, folic acid and multivite * #Nicotine dependence: counseled to quit. Declined nicotine patch on admission DVT prophylaxis: low risk. encourage to ambulate Charges/Coding Visit Charges Inpatient E&M: 18922 Subs Hosp L2
--- NOTE | 2022-02-01 17:01 | ADDICTION ---
This worker met with pt. completed ASAM, AUDIT, DUDIT, MSE, and started discharge plan. Pt. signed SONNY's for estranged (Ange) and Aliaadilson. This worker will meet with pt. 02/02/22 to discuss d/c plans. Pt. did not report needing transportation post d/c.
[2022-02-01 20:22] VITALS: BP 132/80; PULSE 97; RESP 18; TEMP 37.1; O2SAT 99
[2022-02-02 02:04] VITALS: BP 127/93; PULSE 71; RESP 18; TEMP 36.6; O2SAT 98
[2022-02-02] MEDS: Phenobarbital 32.4 MG Tablet 64.8 MG PO ×6 (02:09→21:47)
[2022-02-02 07:13] VITALS: O2SAT 95
--- NOTE | 2022-02-02 09:55 | PN.HOSP_ITS ---
Subjective Subjective Patient seen and examined. He had no active complaints, and had an uneventful night. Review of systems is otherwise negative. Objective Data Objective Data Vital Signs: Vital Signs Temp Pulse Resp BP Pulse Ox O2 Del Method 98 F 71 18 127/93 H 95 Room Air 02/02/22 02:04 02/02/22 02:04 02/02/22 02:04 02/02/22 02:04 02/02/22 07:13 02/02/22 07:13 Oxygen Delivery Method Room Air Weight: 145 lb 8.081 oz Body Mass Index (BMI) 24.2 Intake & Output: Intake and Output for Last 24 Hours 01/31/22 02/01/22 02/02/22 23:59 23:59 23:59 Intake Total 1900 / 1900 700 / 700 Balance 1900 / 1900 700 / 700 Lab / Micro Data Result Diagrams: 01/31/22 13:00 01/31/22 13:00 Rhythm Strip Rhythm Strip: Sinus Rhythm Rate: 96 Ectopy: None Physical Exam Const alert, oriented x3 and no apparent distress HEENT head/scalp atraumatic and moist oral mucous membranes Eyes PERRL, EOMs intact bilaterally and conjunctivae normal Neck no lymphadenopathy, supple and no JVD Resp normal respiratory effort, no retractions, no use of accessory muscles and clear to auscultation bilaterally Cardio regular rate, regular rhythm, S1 normal heart sound, S2 normal heart sound and no murmurs GI normal to inspection, nondistended, normoactive bowel sounds, soft to palpation, non-tender, non-distended and hepatosplenomegaly Extremity normal to inspection, full ROM and no clubbing, cyanosis or edema General Extremity: edema Neuro oriented x3, CN's II-XII intact bilaterally, moves all extremities, no focal motor deficits and no sensory deficits noted Sensorium / Orientation: awake and alert Motor Exam: strength 5/5 throughout Psych affect normal Assessment & Plan Assessment/Plan (1) Alcohol intoxication: (2) Desire for detoxification: PLAN: Plan #Acute alcohol withdrawal * on alcohol withdrawal protocol with phenobarbital * monitor CIWA score * adjunctive meds for symptomatic relief * PO thiamine, folic acid and multivite * #Nicotine dependence: counseled to quit. Declined nicotine patch on admission DVT prophylaxis: low risk. encourage to ambulate Charges/Coding Visit Charges Inpatient E&M: 98138 Subs Hosp L2
[2022-02-02 10:11] VITALS: BP 134/92; PULSE 88; RESP 18; TEMP 36.7; O2SAT 97
[2022-02-02] MEDS: Folic Acid 1 MG Tablet PO (10:15)
[2022-02-02] MEDS: Thiamine Hydrochloride 100 MG Tablet PO (10:15)
--- NOTE | 2022-02-02 10:30 | ADDICTION ---
This worker placed a referral and faxed over information to [facility]. They will call once approved or if they need additional information. They admit on the weekend. will transport if [facility] does not provide.
[2022-02-02 14:07] VITALS: BP 121/83; PULSE 103; RESP 18; TEMP 36.5; O2SAT 99
[2022-02-02 18:41] VITALS: BP 163/93; PULSE 92; RESP 18; TEMP 36.3; O2SAT 97
[2022-02-02 21:44] VITALS: BP 133/94; PULSE 68; RESP 16; TEMP 36.6; O2SAT 95
[2022-02-03] MEDS: Phenobarbital 32.4 MG Tablet 64.8 MG PO ×3 (03:04→12:15)
[2022-02-03 03:05] VITALS: BP 126/76; PULSE 63; RESP 16; TEMP 36.4; O2SAT 97
[2022-02-03 06:35] VITALS: BP 132/85; PULSE 71; RESP 16; TEMP 36.4; O2SAT 94
[2022-02-03 07:25] VITALS: O2SAT 97
[2022-02-03 08:51] VITALS: BP 136/97; PULSE 97; RESP 16; TEMP 37.2; O2SAT 98
[2022-02-03] MEDS: Folic Acid 1 MG Tablet PO (08:55)
[2022-02-03] MEDS: Thiamine Hydrochloride 100 MG Tablet PO (08:55)
[2022-02-03 12:14] VITALS: BP 130/94; PULSE 79; RESP 16; TEMP 36.7; O2SAT 98
--- NOTE | 2022-02-03 12:51 | PCM.PN.HOSP ---
Subjective Subjective Patient seen and examined. He has no active complaints and had an uneventful night. Review of systems is otherwise negative. Objective Data Objective Data Vital Signs: Vital Signs Temp Pulse Resp BP Pulse Ox O2 Del Method 98.1 F 79 16 130/94 H 98 Room Air 02/03/22 12:14 02/03/22 12:14 02/03/22 12:14 02/03/22 12:14 02/03/22 12:14 02/03/22 12:14 Oxygen Delivery Method Room Air Weight: 145 lb 8.081 oz Body Mass Index (BMI) 24.2 Intake & Output: Intake and Output for Last 24 Hours 02/01/22 02/02/22 02/03/22 23:59 23:59 23:59 Intake Total 1900 / 1900 700 / 700 900 / 900 Balance 1900 / 1900 700 / 700 900 / 900 Lab / Micro Data Result Diagrams: 01/31/22 13:00 01/31/22 13:00 Rhythm Strip Rhythm Strip: Sinus Rhythm Rate: 96 Ectopy: None Physical Exam Const alert, oriented x3 and no apparent distress HEENT head/scalp atraumatic and moist oral mucous membranes Eyes PERRL, EOMs intact bilaterally and conjunctivae normal Neck no lymphadenopathy, supple and no JVD Resp normal respiratory effort, no retractions, no use of accessory muscles and clear to auscultation bilaterally Cardio regular rate, regular rhythm, S1 normal heart sound, S2 normal heart sound and no murmurs GI normal to inspection, nondistended, normoactive bowel sounds, soft to palpation, non-tender, non-distended and hepatosplenomegaly Extremity normal to inspection, full ROM and no clubbing, cyanosis or edema General Extremity: edema Neuro oriented x3, CN's II-XII intact bilaterally, moves all extremities, no focal motor deficits and no sensory deficits noted Sensorium / Orientation: awake and alert Motor Exam: strength 5/5 throughout Psych affect normal Assessment & Plan Assessment/Plan (1) Alcohol intoxication: (2) Desire for detoxification: PLAN: Plan #Acute alcohol withdrawal on alcohol withdrawal protocol with phenobarbital monitor CIWA score adjunctive meds for symptomatic relief PO thiamine, folic acid and multivite #Nicotine dependence: counseled to quit. Declined nicotine patch on admission DVT prophylaxis: low risk. encourage to ambulate [facility] Charges/Coding Visit Charges Inpatient E&M: 99713 Subs Hosp L2
--- NOTE | 2022-02-03 13:59 | DS.PCM_ITS ---
Providers Date of Admission: 01/31/22 Primary Care Physician: No Primary Care Phys Reason For Visit: DESIRE FOR DETOXIFICATION Diagnosis Discharge Diagnosis (1) Alcohol intoxication: Status: Acute Code(s): F10.929 - Alcohol use, unspecified with intoxication, unspecified (2) Desire for detoxification: Status: Acute Plan #Acute alcohol withdrawal * on alcohol withdrawal protocol with phenobarbital * monitor CIWA score * adjunctive meds for symptomatic relief * PO thiamine, folic acid and multivite * #Nicotine dependence: counseled to quit. Declined nicotine patch on admission DVT prophylaxis: low risk. encourage to ambulate Disposition: awaiting dc to [facility] rehab facility once a bed is available Medications at Discharge Home Medications NK 01/31/22 Hospital Course Operations None Procedures None Summary of Care Provided Minutes Spent on Discharge: 35 Hospital Course: Patient is a 41-year-old male with past medical history as outlined including alcohol and tobacco abuse who was admitted through the ED on 01/31/2022 intoxicated. He was initially said that he was suicidal but subsequently patient said he was not suicidal and was cleared by social work. He requested detox from alcohol as he had been drinking heavily for about 5 years. He drank about 8 shots of [place] alcohol daily. He was admitted and managed for acute opioid withdrawal. He was placed on alcohol withdrawal protocol with buprenorphine. He tolerated 3-day detox process well. Plan was for patient to be admitted to [facility] inpatient detox facility. However they would not have a bed until 02/05/2022. Patient however requested discharge home so that he cou ld go to [facility] himself on Sunday. This was discussed with addiction medicine coordinator who said patient was to have a bed at the inpatient detox facility on Sunday and could go down on his own. Patient was discharged on 02/03/2022 and is to follow-up with his primary care doctor within 1 to 2 weeks. Patient was seen and examined prior to discharge. He had no active complaints and had an uneventful night. Review of systems otherwise negative. Labs and vitals reviewed. Medication reviewed and reconciled. Physical Exam Const alert, oriented x3 and no apparent distress General Appearance: cooperative, comfortable and well kempt Exam Limitations: no limitations HEENT normocephalic, head/scalp atraumatic, hearing grossly normal bilaterally and moist oral mucous membranes Eyes PERRL, EOMs intact bilaterally and conjunctivae normal Neck no lymphadenopathy, supple and no JVD Resp normal respiratory effort, no retractions, no use of accessory muscles and clear to auscultation bilaterally Cardio regular rate, regular rhythm, S1 normal heart sound, S2 normal heart sound and no murmurs GI normal to inspection, nondistended, normoactive bowel sounds, soft to palpation, non-tender, non-distended and hepatosplenomegaly Extremity normal to inspection, full ROM and no clubbing, cyanosis or edema General Extremity: edema Neuro oriented x3, CN's II-XII intact bilaterally, moves all extremities, no focal motor deficits and no sensory deficits noted Sensorium / Orientation: awake and alert Motor Exam: strength 5/5 throughout Psych affect normal Weight / BMI Weight Weight: 145 lb 8.081 oz Body Mass Index (BMI) 24.2 ABG / Lab / Microbiology Data Result Diagrams: 01/31/22 13:00 01/31/22 13:00 D/C Instructions Discharge Diet: No restrictions Weight Bearing Status: Weight bearing as tolerated Call your doctor if you observe: Fever of 101 or Higher, Shortness of breath, Dizziness, Fainting spells, Swelling in the ankles, Chest pain and Increased palpitations (irregular heartbeat) Meaningful Use Info Meaningful Use Diagnoses (Choose all that apply): None applicable Discharge Plan Admission Admit Date/Time: 01/31/22 20:08 Primary Reason for Your Visit: acute alcohol withdrawal Attending Provider: Shauna Ziegler Primary Care Provider: Care Physician,No Primary Consulting Providers: Pato Braun Instructions Patient Instructions: Alcohol Addiction, Addiction: Getting Help Discharge Orders/Prescriptions Prescriptions: No Action NK Referrals / Follow Up: Care Physician,No Primary [Primary Care Provider] - Disposition Disposition (needs filled in before D/C Order can be placed): Home, Self Care
== END 2022-02-03 14:56 | disposition home or self-care (01) | DRG 897 ==
LOC: ED 14:11 → MS3 02-01 07:21
PROVIDERS: Admitting Provider Hospitalist; Emergency Provider Emergency Medicine; Visit Provider Student in an Organized Health Care Education/Training Program
DX: F10.229 Alcohol dependence with intoxication, unspecified (principal); F10.239 Alcohol dependence with withdrawal, unspecified; R45.851 Suicidal ideations; F17.210 Nicotine dependence, cigarettes, uncomplicated; Y90.6 Blood alcohol level of 120-199 mg/100 ml; F32.A Depression, unspecified
CPT/HCPCS: 80053; 80307; 80329; 82077; 85025; 93005; 99221; 99285; 99406; G0378; G0480